=== PATIENT | male | born 1935 | race African-American/Black ===

== ENCOUNTER 2023-04-15 00:25 | Inpatient (IN) | payer BC ==
[~2023-04-15] VITALS: Ht 167.6 cm; Wt 68.0 kg
[2023-04-15] MEDS: NACL 0.9% 1,000 ML IV SCH ×2 (00:15→05:30)
[2023-04-15 00:33] VITALS: BP 144/76; PULSE 88; RESP 20; TEMP 97.4; O2SAT 98
--- NOTE | 2023-04-15 00:50 | NUR ---
SPOKE WITH PATIENT AND OMAR HEART AT BEDSIDE, PATIENT HAS COMPLAINTS DIFFICULTY PASSING URINE, PATIENT HAS INDWELLING ISBELL CATHETER, GOES TO UROLOGY OFFICE ONCE A MONTH FOR NEW ISBELL. OMAR OLVERAR ATTEMPTED TO FLUSH ISBELL AT HOME AND WAS NOT SUCCESSFUL, HAS BLOOD CLOTS CLOGGING THE TUBING. PMH: ENLARGED PROSTATE, HTN, KIDNEY DISEASE, DM, AND CLL (CHRONIC LYMPHOCYTIC LEUKEMIA)
[2023-04-15 03:18] LABS: BASOPHILS % (AUTO) 0.2 % (0.0-2.0); HEMATOCRIT 29.9 % (36-52); HEMOGLOBIN 9.6 g/dL (12.0-18.0); LYMPHOCYTES # (AUTO) 9.8 K/uL (2.0-11.5); LYMPHOCYTES % (AUTO) 54.6 % (20.5-51.1); MEAN CORPUSCULAR HEMOGLOBIN 27 pg (27-31); MEAN CORPUSCULAR HGB CONC 32 g/dL (33-37); MEAN CORPUSCULAR VOLUME 83.2 fL (80-94); MONOCYTES # (AUTO) 0.5 K/uL (0.8-1.0); MONOCYTES % (AUTO) 2.9 % (1.7-9.3); NEUTROPHILS # (AUTO) 7.6 K/uL (1.8-7.7); NEUTROPHILS % (AUTO) 42.3 % (42.2-75.2); PLATELET COUNT (AUTO) 235 K/uL (140-450); RED CELL DISTRIBUTION WIDTH 14.9 % (11.6-13.7)
[2023-04-15] MEDS ORDERED: cefTRIAXone 1,000 MG VIAL ONE (03:21)
[2023-04-15 03:27] LABS: ANION GAP 17.3 (8-16); CARBON DIOXIDE 23.3 mmol/L (21-32); CHLORIDE 96 mmol/L (98-107); CREATININE 3.4 mg/dL (0.6-1.3); GLUCOSE 177 mg/dL (74-106); POTASSIUM 5.6 mmol/L (3.5-5.1); SODIUM SERUM 131 mmol/L (136-145); UREA NITROGEN, BLOOD 47 mg/dL (7-18)
[2023-04-15 03:30] LABS: PROTHROMBIN TIME 10.7 secs (10.8-13.4)
[2023-04-15 03:41] LABS: APPEARANCE,URINE CLOUDY (CLEAR); BILIRUBIN,URINE 1+ (NEGATIVE); BLOOD, URINE 3+ (NEGATIVE); COLOR,URINE RED (YELLOW); LEUKOCYTE ESTERASE ,URINE 2+ (NEGATIVE); NITRITE, URINE POSITIVE (NEGATIVE); UGLUCOSE TRACE (NEGATIVE)
[2023-04-15 03:46] LABS: RBC,URINE TOO NUMEROUS TO COUN /HPF (0-5)
[2023-04-15] MEDS ORDERED: SODIUM ZIRCONIUM CYCLOSILICATE 10 GM POWD.PACK PO ONE (04:05)
[2023-04-15] MEDS ORDERED: LOSA100T52 PO (04:10)
[2023-04-15] MEDS ORDERED: FINA1TAB30 PO (04:10)
[2023-04-15] MEDS ORDERED: ATOR20TA40 PO (04:10)
[2023-04-15] MEDS ORDERED: FURO20TA8 PO (04:10)
[2023-04-15] MEDS ORDERED: CHOL400C2 PO (04:10)
[2023-04-15] MEDS ORDERED: TAMS0.4C96 PO (04:10)
[2023-04-15] MEDS ORDERED: IBRU140C PO (04:12)
[2023-04-15] MEDS ORDERED: MAGNESIUM OXIDE 400 MG TAB PO PRN (05:30)
[2023-04-15] MEDS ORDERED: ACETAMINOPHEN 325 MG TAB PO PRN (05:30)
[2023-04-15] MEDS ORDERED: POTASSIUM CHLORIDE 10 MEQ TABER PO PRN (05:30)
[2023-04-15] MEDS ORDERED: HYDROcodone/APAP 5/325 MG 1 TAB TAB PO PRN (05:30)
[2023-04-15] MEDS ORDERED: MORPHINE SULFATE 4 MG/ML SYR IVP PRN (05:30)
[2023-04-15] MEDS ORDERED: ONDANSETRON 4 MG/2 ML VIAL IVP PRN (05:30)
--- NOTE | 2023-04-15 06:33 | NUR ---
REPORT CALLED TO WHIT IN [facility], PATIENT WILL TRANSFER TO ROOM 107 A WILL BE ADMITTED UNDER THE CARE OF DR. DENY AVILA
--- NOTE | 2023-04-15 06:58 | NUR ---
PT. ARRIVED ON UNIT FROM ER ACCOMPANIED BY GRANDDAUGHTER
--- NOTE | 2023-04-15 07:00 | NUR ---
PT ARRIVED TO UNIT VIA GURNEY. DAUGHTER AT BEDSIDE. STABLE UPON ARRIVAL. RECEIVED REPORT FROM NIGHTSHIFT NURSE. IV TO LEFT AC 20G - SALINE LOCK - CLEAN/INTACT.
--- NOTE | 2023-04-15 07:00 | NUR ---
Pt report given to WHIT. Transfer of care at this time TO [facility], RM 107A
[2023-04-15 08:00] VITALS: PULSE 75; PULSE 83; RESP 18; O2SAT 100; O2SAT 98
--- NOTE | 2023-04-15 08:52 | NUR ---
PATIENT HAS BEEN SCREENED AND CATEGORIZED LOW NUTRITION RISK. PATIENT WILL BE SEEN WITHIN 7 DAYS OF ADMISSION. 04/22/[address]
[2023-04-15] MEDS: NIFEdipine 30 MG TABER PO SCH (10:28)
[2023-04-15] MEDS: DOCUSATE SODIUM 100 MG GELCAP PO SCH (10:28)
[2023-04-15 12:00] VITALS: BP 117/51; PULSE 47; PULSE 62; RESP 18; TEMP 97.7; O2SAT 98
[2023-04-15 16:00] VITALS: BP 116/58; PULSE 75; PULSE 85; RESP 18; TEMP 98.1; O2SAT 98
[2023-04-15 16:47] LABS: ANION GAP 11.8 (8-16); CARBON DIOXIDE 26.7 mmol/L (21-32); CHLORIDE 101 mmol/L (98-107); CREATININE 3.1 mg/dL (0.6-1.3); GLUCOSE 110 mg/dL (74-106); POTASSIUM 4.5 mmol/L (3.5-5.1); SODIUM SERUM 135 mmol/L (136-145); UREA NITROGEN, BLOOD 44 mg/dL (7-18)
--- NOTE | 2023-04-15 19:00 | NUR ---
ENDORSED TO NIGHTSHIFT NURSE FOR CONTINUITY OF CARE. PT STABLE - NO SIGNS OF DISTRESS. CALL LIGHT IS WITHIN REACH.
--- NOTE | 2023-04-15 19:30 | NUR ---
RECEIVED REPORT FROM DAY NURSE FOR CONTINUITY OF CARE. PATIENT AWAKE WELL RESTED ON ROOM AIR IN NO ACUTE DISTRESS. NO COMPLAINTS OF PAIN. ABLE TO COMMUNICATE WITH HIS NEEDS. CALL LIGHT WITHIN REACH. SAFETY MEASURES ARE IN PLACE.
[2023-04-15 20:00] VITALS: BP 116/51; PULSE 62; PULSE 79; RESP 16; TEMP 98.2; O2SAT 97
--- NOTE | 2023-04-15 21:20 | NUR ---
ANSWERED CALL LIGHT. ATTENDED TO HIS NEEDS. ISBELL CATHETER DRAINING TO GRAVITY TO A CLEAR YELLOW URINE.
[2023-04-16] VITALS: BP 137/47; PULSE 82; PULSE 86; RESP 17; TEMP 98.7; O2SAT 96
[2023-04-16 04:00] VITALS: BP 98/72; PULSE 66; PULSE 69; RESP 16; TEMP 98; O2SAT 98
[2023-04-16 06:27] LABS: ANION GAP 15.4 (8-16); CHLORIDE 103 mmol/L (98-107); CREATININE 3.1 mg/dL (0.6-1.3); GLUCOSE 96 mg/dL (74-106); POTASSIUM 4.4 mmol/L (3.5-5.1); SODIUM SERUM 139 mmol/L (136-145); UREA NITROGEN, BLOOD 43 mg/dL (7-18)
[2023-04-16 06:39] LABS: BASOPHILS % (AUTO) 0.2 % (0.0-2.0); EOSINOPHILS # (AUTO) 0.1 K/uL (0-0.4); HEMOGLOBIN 8.8 g/dL (12.0-18.0); LYMPHOCYTES # (AUTO) 10.7 K/uL (2.0-11.5); LYMPHOCYTES % (AUTO) 73.3 % (20.5-51.1); MEAN CORPUSCULAR HEMOGLOBIN 27 pg (27-31); MEAN CORPUSCULAR HGB CONC 33 g/dL (33-37); MEAN CORPUSCULAR VOLUME 82.8 fL (80-94); MONOCYTES # (AUTO) 0.7 K/uL (0.8-1.0); MONOCYTES % (AUTO) 4.6 % (1.7-9.3); NEUTROPHILS % (AUTO) 20.9 % (42.2-75.2); PLATELET COUNT (AUTO) 224 K/uL (140-450); RED BLOOD CELL COUNT(AUTO) 3.26 MIL/uL (4.20-6.10); RED CELL DISTRIBUTION WIDTH 14.8 % (11.6-13.7); WHITE BLOOD COUNT (AUTO) 14.5 K/uL (4.8-10.8)
--- NOTE | 2023-04-16 07:29 | NUR ---
GAVE BEDSIDE REPORT TO AM NURSE FOR CONTINUITY OF CARE. NO EPISODE OF HEMATURIA DURING THROUGHOUT THE SHIFT.
--- NOTE | 2023-04-16 07:59 | NUR ---
RECEIVED PATIENT FROM PM NURSE FOR CONTINUATION OF CARE. PATIENT SEEN ON BED AWAKE. PATIENT VERBALIZES NO CONCERNS. PATIENT CARE CONTINUED.
[2023-04-16 08:00] VITALS: BP 98/61; PULSE 65; PULSE 68; RESP 17; TEMP 97.8; O2SAT 100
[2023-04-16] MEDS ORDERED: SODIUM FERRIC GLUCONATE 125 MG in NACL 0.9% 100 ML IV SCH (09:00)
[2023-04-16] MEDS: DOCUSATE SODIUM 100 MG GELCAP PO SCH (09:08)
[2023-04-16] MEDS: NIFEdipine 30 MG TABER PO SCH (09:08)
--- NOTE | 2023-04-16 11:54 | NUR ---
DC [age] YRS OLD MALE PATIENT WAS ADMITTED FROM HOME WITH A DX OF COMPLECTED UTI AND GROSS HEMATURIA. PATIENT HAS A HX OF CKD STAGE IV, BPH AND HTN . RENAL US SHOWED CHIKA . ADMINISTERED IVF, IV ABX ROCEPHIN AND IV FERRLECIT . CONSULTED WITH UROLOGIST AND NEPHRO. DC PLAN TO GO HOME WHEN STABLE. CM TO FOLLOW
[2023-04-16 12:00] VITALS: BP 135/67; PULSE 63; PULSE 72; RESP 20; TEMP 97.9; O2SAT 100
--- NOTE | 2023-04-16 13:24 | NUR ---
[employer] BOX ICER met with pt. who was agreeable to this interview. Pt. maintained eye contact, answered were appropriate and was AOx4. The demographics on the face sheet were confirmed. . Pt. resides with granddaughter, Gaudencio, [phone] who helps care for him. Pt. denied having any identifying problems. 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 Pt. said he is high functioning.Pt. stated he can perform all of his ADLs'. He resides with his grand daugther, Gaudencio (who helps care for him. Pt. said he is high functioning. Pt stated he has a PCP. BOX ICER will remain available as needed.
--- NOTE | 2023-04-16 14:23 | NUR ---
PATIENT SEEN. URINE STILL CLEAR, FREE OF BLOOD. PATIENT VITALS STABLE AND PATIENT VERBALIZES NO CONCERNS
[2023-04-16] MEDS ORDERED: LEVO750T75 PO (15:27)
[2023-04-16 16:00] VITALS: BP 122/62; PULSE 71; PULSE 78; RESP 18; TEMP 98.3; O2SAT 100
[2023-04-16 16:22] VITALS: BP 122/62; PULSE 78; RESP 18; TEMP 98.3
== END 2023-04-16 17:25 | disposition home or self-care (01) | DRG 699 ==
LOC: MED 00:25 → MTU 05:35
PROVIDERS: ADMIT Student in an Organized Health Care Education/Training Program; ATTEND Student in an Organized Health Care Education/Training Program
DX: T83.518A Infection and inflammatory reaction due to other urinary catheter, initial encounter (principal); E87.1 Hypo-osmolality and hyponatremia; N39.0 Urinary tract infection, site not specified; N17.9 Acute kidney failure, unspecified; I12.0 Hypertensive chronic kidney disease with stage 5 chronic kidney disease or end stage renal disease; N18.5 Chronic kidney disease, stage 5; N41.9 Inflammatory disease of prostate, unspecified; N40.0 Benign prostatic hyperplasia without lower urinary tract symptoms; E11.22 Type 2 diabetes mellitus with diabetic chronic kidney disease; E87.5 Hyperkalemia; D64.9 Anemia, unspecified; Z85.6 Personal history of leukemia
CPT/HCPCS: 36415; 76770; 80048; 81001; 82728; 83540; 83605; 83735; 85025; 85610; 85730; 87040; 87081; 87086; 93005; 96365; 99291; J0696; J2916; J7060; Q0092